=== PATIENT | male | born 1985 | race Two or more races ===

== ENCOUNTER 2017-09-08 21:27 | Emergency (ER) | payer BC, OTHER ==
[~2017-09-08] VITALS: Ht 167.6 cm; Wt 68.0 kg
--- NOTE | 2017-09-08 21:44 | NUR ---
TO BED 10 BIB PARAMEDICS WITH [employer] AT BEDSIDE. PER EMS REPORT PT WAS ON TOP ROOF WITH A PLAN TO JUMP OFF. PT EVENTUALLY CLIMBED DOWN THE LADDER PER EMS REPORT. PT AAOX4 NO ACUTE DISTRESS NOTED, RESP EVEN AND UNLABORED. PLACE PT ON CARDIAC MONITORING, CONTINUOUS POX. PENDING ER MD ALVARADO.
[2017-09-08] MEDS ORDERED: LORAZEPAM 1 MG TABLET PO ONE (22:00)
--- NOTE | 2017-09-08 22:03 | NUR ---
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
[2017-09-08 22:10] LABS: BASOPHILS % (AUTO) 0.3 % (0.0-2.0); HEMATOCRIT 44 % (39-51); LYMPHOCYTES # (AUTO) 1.7 /CMM (0.8-4.8); LYMPHOCYTES % (AUTO) 16.9 % (20.0-44.0); MEAN CORPUSCULAR HGB CONC 34 g/dl (31.0-36.0); MEAN CORPUSCULAR VOLUME 79 fL (80-96); MONOCYTES # (AUTO) 1.2 /CMM (0.1-1.30); MONOCYTES % (AUTO) 12.1 % (2.0-12.0); NEUTROPHILS # (AUTO) 6.9 /CMM (1.8-8.9); NEUTROPHILS % (AUTO) 69.7 % (43.0-81.0); PLATELET COUNT (AUTO) 254 /CMM (150-450); RDW COEFFICIENT OF VARIATION 15.1 (11.5-15.0); RED BLOOD CELL COUNT(AUTO) 5.59 MIL/uL (4.5-6.0); WHITE BLOOD COUNT (AUTO) 9.9 K/uL (4.3-11.0)
[2017-09-08 22:19] LABS: CALCIUM, SERUM 8.8 mg/dL (8.5-10.1); CARBON DIOXIDE 25 mmol/L (21-32); CHLORIDE 104 mmol/L (98-107); CREATININE 1.3 mg/dL (0.6-1.3); GLUCOSE 121 mg/dL (74-106); SODIUM SERUM 142 mmol/L (136-145); UREA NITROGEN, BLOOD 21 mg/dL (7-18)
[2017-09-08 22:25] LABS: ALANINE AMINOTRANSFERASE 97 U/L (12-78); ALBUMIN 3.8 g/dL (3.4-5.0); ALCOHOL, BLOOD < 3 mg/dL (0-0); ALKALINE PHOSPHATASE 68 U/L (46-116); ASPARTATE AMINOTRANSFERASE 144 U/L (15-37); BILIRUBIN,DIRECT 0.1 mg/dL (0.0-0.2); BILIRUBIN,TOTAL 0.6 mg/dL (0.2-1.0); TOTAL PROTEIN, SERUM 7.8 g/dL (6.4-8.2)
[2017-09-08 22:27] LABS: ACETAMINOPHEN 0 ug/ml (10-30); SALICYLATE 1.5 mg/dL (2.8-20.0); TROPONIN I < 0.017 ng/mL (0.00-0.056)
--- NOTE | 2017-09-08 22:35 | NUR ---
URINE SAMPLE COLLECTED AND SENT TO LAB.
[2017-09-08 22:55] LABS: APPEARANCE,URINE CLEAR (CLEAR); BILIRUBIN,URINE NEGATIVE (NEGATIVE); BLOOD, URINE TRACE-INTA Ery/uL (NEGATIVE); COLOR,URINE YELLOW (YELLOW); KETONES,URINE 2+ (NEGATIVE); LEUKOCYTE ESTERASE ,URINE NEGATIVE (NEGATIVE); NITRITE, URINE NEGATIVE (NEGATIVE); PROTEIN,URINE 1+ mg/dl (NEGATIVE); UGLUCOSE NEGATIVE (NEGATIVE); UROBILINOGEN,URINE 0.2 EU/dL (0.2)
[2017-09-08 23:09] LABS: BACTERIA,URINE None seen /HPF (None Seen); RBC,URINE 0-2 /HPF (0-2); SQUAMOUS EPITHELIAL CELL,UR Few /HPF (None Seen); WBC,URINE 0-2 /HPF (0-3)
--- NOTE | 2017-09-09 00:02 | NUR ---
PT ASLEEP, NO ACUTE DISTRESS NOTED, RESP EVEN AND UNLABORED. CALL LIGHT WITHIN REACH. WILL CONTINUE TO MONITOR PT CLOSELY.
--- NOTE | 2017-09-09 00:51 | NUR ---
MARYANNE GARCIAW AT BEDSIDE TO CHRISTIANO ASHLEY.
[2017-09-09] MEDS ORDERED: OLANZAPINE 10 MG VIAL IM ONE ×2 (01:30→04:47)
--- NOTE | 2017-09-09 05:16 | NUR ---
PT ASLEEP, NO ACUTE DISTRESS NOTED, RESP EVEN AND UNLABORED. CALL LIGHT WITHIN REACH. WILL CONTINUE TO MONITOR PT CLOSELY.
--- NOTE | 2017-09-09 06:55 | NUR ---
PT ASLEEP, NO ACUTE DISTRESS NOTED, RESP EVEN AND UNLABORED. CALL LIGHT WITHIN REACH. WILL CONTINUE TO MONITOR PT CLOSELY.
--- NOTE | 2017-09-09 07:15 | NUR ---
RECEIVED REPORT FOR ETHAN.
--- NOTE | 2017-09-09 12:08 | NUR ---
CALLED [employer] KAPIL FOR PSYCH EVAL AND LEFT A VOICEMAIL
--- NOTE | 2017-09-09 14:30 | NUR ---
[employer]IDENTIAL SALES REP, KAPIL AT BEDSIDE FOR RE-EVAL.
--- NOTE | 2017-09-09 15:05 | NUR ---
PATIENT C/O LEFT FOOT/ANKLE PAIN. MD NOTIFIED, XRAY ORDERED
--- NOTE | 2017-09-09 18:59 | NUR ---
REPORT GIVEN TO BINA PARISH FOR [facility]AN.
--- NOTE | 2017-09-09 19:00 | NUR ---
REPORT RECEIVED FROM JEM XIONG FOR ETHAN.
[2017-09-09 19:06] VITALS: BP 114/64
--- NOTE | 2017-09-09 21:33 | NUR ---
REPORT GIVEN TO DAVY AT [facility]. PT ADMIT TO BED 631B BY DR YORK.
--- NOTE | 2017-09-09 21:36 | NUR ---
CALLED [facility] FOR BLS TRANSPORT TO [facility]. WAS GIVEN A WIRE GALVANIZER TIME OF [id number] TRIP #: [id number]
--- NOTE | 2017-09-09 23:42 | NUR ---
REPORT GIVEN TO GONZALO MENDOZA FOR TRANSPORT TO [facility].
== END 2017-09-10 00:15 ==
LOC: ER 21:29
DX: R45.851 Suicidal ideations (principal); M25.571 Pain in right ankle and joints of right foot; F15.10 Other stimulant abuse, uncomplicated; F12.10 Cannabis abuse, uncomplicated; F19.10 Other psychoactive substance abuse, uncomplicated; F20.9 Schizophrenia, unspecified
CPT/HCPCS: 36415; 73610-TC; 73630-TC; 80048-TC; 80076-TC; 80305; 81000-TC; 84484-TC; 85025-TC; A4606; G0480; J3490; Z7610